=== PATIENT | female | born 2000 | race Caucasian/White ===

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

== ENCOUNTER → 2022-08-24 | Outpatient (CLI) | payer OTHER ==
[~2022-08-24] MED LIST changes: +AFRISPR3; +CLAR1TAB13 PO; +E-Z-PAQUE 96% w/w SUSP 176GM BTL As Ordered ONE; +FAMO20TA PO; +FLON1SPR; -NS 1,000 ML IV ONE; +PROBCAP14 PO; +VITMTA PO
== END ==
LOC: M RAD 07:43
PROVIDERS: ATTEND Internal Medicine Gastroenterology
DX: K59.89 Other specified functional intestinal disorders (principal)

== ENCOUNTER → 2022-09-03 | Outpatient (CLI) | payer OTHER ==
[~2022-09-03] MED LIST changes: -E-Z-PAQUE 96% w/w SUSP 176GM BTL As Ordered ONE
== END ==
LOC: M LABSMTC 11:48
PROVIDERS: ATTEND Anesthesiology
DX: Z01.812 Encounter for preprocedural laboratory examination (principal); Z20.822 Contact with and (suspected) exposure to COVID-19

== ENCOUNTER 2022-09-04 10:14 | Day surgery (SDC) | payer OTHER ==
[~2022-09-04] VITALS: Ht 170.2 cm; Wt 101.6 kg
[~2022-09-04 10:14] MED LIST changes: +NS 1,000 ML IV ONE
[2022-09-04] MEDS ORDERED: LIDOCAINE 2% 100MG/5ML SDV (FOR ANES.) As Ordered ONE (10:25)
[2022-09-04] MEDS ORDERED: propofoL 500 MG/50 ML VIAL As Ordered ONE (10:25)
[2022-09-04] MEDS ORDERED: fentaNYL 100 MCG/2 ML INJECTION As Ordered ONE (11:01)
[2022-09-04 11:32] VITALS: BP 122/79
== END 2022-09-04 12:14 | disposition home or self-care (01) ==
LOC: M OPP 10:14
PROVIDERS: ATTEND Internal Medicine Gastroenterology
DX: K58.2 Mixed irritable bowel syndrome (principal); K64.8 Other hemorrhoids; R10.84 Generalized abdominal pain; K29.70 Gastritis, unspecified, without bleeding; R11.0 Nausea; Z79.51 Long term (current) use of inhaled steroids; Z79.899 Other long term (current) drug therapy; Z88.1 Allergy status to other antibiotic agents; Z91.018 Allergy to other foods; J45.909 Unspecified asthma, uncomplicated; F41.9 Anxiety disorder, unspecified
CPT/HCPCS: 43239; 45380; 88305; J3010

== ENCOUNTER → 2023-08-22 | Outpatient (REF) | payer OTHER ==
[~2023-08-22] MED LIST changes: -NS 1,000 ML IV ONE
== END ==
LOC: M SFHCWAGY 10:23
PROVIDERS: ATTEND Nurse Practitioner Family
DX: Z12.4 Encounter for screening for malignant neoplasm of cervix (principal); R87.615 Unsatisfactory cytologic smear of cervix; R87.611 Atypical squamous cells cannot exclude high grade squamous intraepithelial lesion on cytologic smear of cervix (ASC-H)

== ENCOUNTER → 2024-08-11 | Outpatient (REF) | payer OTHER | LOC: M PLALAB 09:11 | PROVIDERS: ATTEND Nurse Practitioner Family | DX: R87.615 Unsatisfactory cytologic smear of cervix (principal); Z12.4 Encounter for screening for malignant neoplasm of cervix; Z77.9 Other contact with and (suspected) exposures hazardous to health ==